=== PATIENT | male | born 1975 | race Caucasian/White ===

== ENCOUNTER 2023-05-24 20:08 | Emergency (ER) | payer SELFPAY ==
[2023-05-24 20:14] VITALS: BP 140/94; PULSE 110; RESP 20; TEMP 37.2; O2SAT 95
--- NOTE | 2023-05-24 20:24 | DI.RAD.S_ITS ---
PROCEDURE: XR FINGER RT MIN 2V INDICATIONS: dog bit off tip of index finger TECHNIQUE: AP hand, 2 views of the 2nd finger(s) acquired. COMPARISON: None. FINDINGS: Bones: Traumatic amputation of 2nd finger at the level of 2nd distal phalangeal shaft is seen. No other fracture or dislocation. No suspicious bony lesions. Soft tissues: Soft tissue defect involving distal portion of 2nd finger. No radiopaque foreign body. No suspicious soft tissue calcifications. IMPRESSION: Traumatic amputation of 2nd distal phalanx as described above. No other fracture or dislocation. No radiopaque foreign bodies. Dictated by: Isauro Busby M.D. on 05/24/2023 at 21:11 Approved by: Isauro Busby M.D. on 05/24/2023 at 21:12
--- NOTE | 2023-05-24 20:34 | ED.ANIMALBIT ---
HPI - Animal Bite General Chief Complaint: Animal Bite Stated Complaint: dog bite, rt index finger, has finger part on ice Time Seen by Provider: 05/24/23 20:25 Source: patient Mode of arrival: Ambulatory History of Present Illness HPI narrative: 48-year-old male presents by private vehicle for right index finger distal amputation after dog bite. Patient states that the new family kitten was attempting to get a treat from the elderly dog at home and it attacked. The kitten was killed and the patient lost the distal tip of his finger. The dog is about to be euthanized as he was undergoing cancer and has been in a lot of pain per family member at bedside. The dog is up-to-date on his vaccinations. Patient states he received a tetanus vaccine 6 or 7 years ago Related Data Previous Rx's Medication Instructions Recorded amoxicillin 875 mg-potassium 1 tab PO Q12H 10 days #20 tabs 05/24/23 clavulanate 125 mg tablet Allergies Allergy/AdvReac Type Severity Reaction Status Date / Time No Known Drug Allergies Allergy Verified 05/24/23 20:14 Review of Systems Review of Systems Narrative: Negative except as noted above Patient History Social History Smoking Status: Never smoker Smoking Status: Never smoker alcohol intake frequency: 0-2 drinks per day Substance Use Type: marijuana Exam Initial Vital Signs Initial Vital Signs: Vital Signs Temperature 99 F 05/24/23 20:14 Pulse Rate 110 H 05/24/23 20:14 Respiratory Rate 20 05/24/23 20:14 Blood Pressure 140/94 H 05/24/23 20:14 Pulse Oximetry 95 05/24/23 20:14 Oxygen Delivery Method Room Air 05/24/23 20:14 Const: Awake, alert, no acute distress, nontoxic appearing Skin: Warm, Dry, amputation of distal right index fingertip Neuro: AO x3, CN II-XII grossly intact, moves all extremities Procedures Laceration Repair Laceration 1: Site: hand Side (If applicable): right Size (cm): 2 Description: irregular and contaminated Depth: simple, single layer Local Anesthetic: bupivacaine 0.5% Amount of anesthesia used (mL): 4 Pre-repair: wound explored and irrigated extensively Skin layer closed with: nylon Skin layer suture size: 5-0 Number of sutures: 9 Technique: simple, interrupted Nerve Block Nerve Block 1: Time out performed: Yes Local Anesthetic: bupivacaine 0.5% Amount of anesthesia used (mL): 4 Side: right Nerve Blocks: digital Procedure Successful: Yes Patient Tolerated Procedure: Well and No complications Complications: none Course Orders Ordered: ED Orders 05/24/23 20:24 XR finger RT min 2V Stat Discontinued Medications Hydrocodone Bitart/Acetaminophen (Hydrocodone/Acet 5/325 Prepack) 1 bottle MISC DIRECTED ONE Stop: 05/24/23 22:38 Last Admin: 05/24/23 22:49 Dose: 1 bottle Documented By: GERRY Amoxicillin/Clavulanate Potassium (Amoxicillin/Clav 875/125 Mg) 1 tab PO NOW ONE Stop: 05/24/23 20:44 Last Admin: 05/24/23 20:49 Dose: 1 tab Documented By: STANLEY Bupivacaine HCl (Bupivacaine 0.5% Mdv) 5 ml SUBCUT NOW ONE Stop: 05/24/23 20:34 Last Admin: 05/24/23 20:50 Dose: Not Given Documented By: STANLEY Bupivacaine HCl (Bupivacaine 0.5% (Pf) 30 Ml Vial) 5 ml SUBCUT NOW ONE Stop: 05/24/23 20:44 Last Admin: 05/24/23 20:49 Dose: 5 ml Documented By: STANLEY Diphtheria/Tetanus/Acell Pertussis (Tet,Diph,Pertuss(Acell),Vac/Pf 0.5 Ml Syringe) 0.5 ml IM .ONCE ONE Stop: 05/24/23 22:02 Last Admin: 05/24/23 22:25 Dose: Not Given Documented By: GERRY Cefazolin Sodium 2 gm/ Sodium (Chloride) 100 mls @ 200 mls/hr IV NOW ONE Stop: 05/24/23 22:24 Last Infusion: 05/24/23 22:40 Dose: Infused Documented By: Admin: 05/24/23 22:10 Dose: 200 mls/hr Documented By: GERRY Vital Signs Vital signs: Vital Signs - 8 hr 05/24/23 20:14 05/24/23 22:01 05/24/23 22:30 Temperature 99 F Pulse Rate 110 H 97 H 105 H Respiratory Rate 20 20 Blood Pressure 140/94 H Pulse Oximetry 95 94 94 Oxygen Delivery Method Room Air 05/24/23 22:50 Temperature Pulse Rate 100 H Respiratory Rate 18 Blood Pressure 145/90 H Pulse Oximetry 97 Oxygen Delivery Method Room Air MDM - Animal Bite Differential Diagnosis Differential diagnosis: Likely bite by animal, cat bite and dog bite Imaging Data Extremity x-ray #1: Radiologist's Impression: PROCEDURE: XR FINGER RT MIN 2V INDICATIONS: dog bit off tip of index finger TECHNIQUE: AP hand, 2 views of the 2nd finger(s) acquired. COMPARISON: None. FINDINGS: Bones: Traumatic amputation of 2nd finger at the level of 2nd distal phalangeal shaft is seen. No other fracture or dislocation. No suspicious bony lesions. Soft tissues: Soft tissue defect involving distal portion of 2nd finger. No radiopaque foreign body. No suspicious soft tissue calcifications. IMPRESSION: Traumatic amputation of 2nd distal phalanx as described above. No other fracture or dislocation. No radiopaque foreign bodies. Dictated by: Isauro Busby M.D. on 05/24/2023 at 21:11 Approved by: Isauro Busby M.D. on 05/24/2023 at 21:12 [facility] Narrative Medical decision making narrative: Traumatic amputation of right distal index finger by family pet. Animals up-to-date on vaccinations. Open fracture evident on exam. Given IV ancef. Tetanus update offered however patient declined stating an adverse reaction to his last vaccine. Flap repair of index finger made per procedure notes, covered with xeroform and clean gauze. Picture sent to [facility], who deemed the repair to be acceptable and we will call the patient tomorrow to schedule a follow up appointment. Patient expressed apprehension due to costs as he does not have insurance. I advised patient that financial assistance programs are frequent and I would not let cost be a potential factor when considering the health of his dominant index finger. Augmentin sent to pharmacy of choice. ED return precautions discussed at bedside. Patient expressed understanding of the plan and is in agreement at this time. All questions answered at the time of discharge. Discharge Plan Departure Patient Disposition: Home Clinical Impression: Fingertip amputation, Dog bite Instructions: DI for Dog Bite Activity Restrictions/Additional Instructions: Keep the wound clean and dry. Take all of your antibiotics as prescribed. Applying ice and keeping your finger elevated will help decrease swelling. Your information will be sent to the hand team at [facility]. Keep a very close eye on your wound to make sure it does not become infected. Look for redness, swelling, drainage, worsening pain. Prescriptions: New amoxicillin-pot clavulanate 875-125 mg tablet 1 tab PO Q12H 10 Days Qty: 20 0RF Stand Alone Forms: Patient Portal/API
[2023-05-24] MEDS: BUPIVACAINE 0.5% (PF) 30 ML VIAL 5 ML SUBCUT (20:49)
[2023-05-24] MEDS: AMOXICILLIN/CLAV 875/125 MG 1 TAB PO (20:49)
[2023-05-24 22:01] VITALS: PULSE 97; O2SAT 94
[2023-05-24] MEDS: CEFAZOLIN VIAL 2 GM in SODIUM CHLORIDE 0.9% 100 ML IV (22:10)
[2023-05-24 22:30] VITALS: PULSE 105; RESP 20; O2SAT 94
[2023-05-24] MEDS: HYDROCODONE/ACET 5/325 PREPACK 1 BOTTLE MISC (22:49)
[2023-05-24 22:50] VITALS: BP 145/90; PULSE 100; RESP 18; O2SAT 97
== END 2023-05-24 22:54 | disposition home or self-care (01) ==
PROVIDERS: Emergency Provider Emergency Medicine
DX: S68.120A Partial traumatic metacarpophalangeal amputation of right index finger, initial encounter (principal); W54.0XXA Bitten by dog, initial encounter
CPT/HCPCS: 12001; 73140; 96365; 99284; J0690